=== PATIENT | female | born 1955 | race Two or more races ===

== ENCOUNTER 2022-01-07 10:20 | Emergency (ER) | payer OTHER ==
[~2022-01-07] VITALS: Ht 157.5 cm; Wt 70.8 kg
[~2022-01-07 10:20] MED LIST: LEVSIN/SL0.125 MG PO; SYNTHROID50 MCG; ZANTAC150 MG PO
[2022-01-07] MEDS ORDERED: HUMIRA40 MG/0.2 (11:02)
== END 2022-01-07 15:30 | disposition home or self-care (01) ==
LOC: ER 10:20
DX: U07.1 COVID-19 (principal); K52.9 Noninfective gastroenteritis and colitis, unspecified; E86.0 Dehydration